=== PATIENT | female | born 1965 | race Caucasian/White ===

== ENCOUNTER 2017-03-28 09:49 | Emergency (ER) | payer MEDICAID, OTHER ==
[~2017-03-28] VITALS: Ht 170.2 cm; Wt 89.0 kg
[2017-03-28] MEDS ORDERED: ISOS30TA53 PO (10:01)
[2017-03-28] MEDS ORDERED: FAMO20TA8 PO (10:01)
[2017-03-28] MEDS ORDERED: ATOR80TA76 PO (10:01)
[2017-03-28] MEDS ORDERED: LISI-618 PO (10:01)
[2017-03-28] MEDS ORDERED: METO25 PO (10:01)
[2017-03-28] MEDS ORDERED: GLIP5TAB11 PO (10:01)
[2017-03-28] MEDS ORDERED: CLOP75TA32 PO (10:01)
[2017-03-28] MEDS ORDERED: AMIT10TA6 PO (10:01)
[2017-03-28] MEDS ORDERED: LEVO50TA4 PO (10:01)
[2017-03-28] MEDS ORDERED: ASPI-556 PO (10:01)
[2017-03-28] MEDS ORDERED: METF10002 PO (10:01)
[2017-03-28 10:02] LABS: GLUCOSE,POINT OF CARE 107 MG/DL (70-110)
[2017-03-28] MEDS ORDERED: PERTUSS(ACELL),DIPH,TET VAC/PF 0.5 ML VIAL IM ONE (10:30)
[2017-03-28] MEDS ORDERED: IBUPROFEN 800 MG TABLET PO ONE (10:45)
[2017-03-28] MEDS ORDERED: AMOX TR/POT CLAV 875 MG/125 MG TABLET PO ONE (10:45)
[2017-03-28 11:22] VITALS: BP 114/56
== END 2017-03-28 11:24 | disposition home or self-care (01) ==
LOC: EMS 09:52
DX: L02.612 Cutaneous abscess of left foot (principal); L03.116 Cellulitis of left lower limb; E11.9 Type 2 diabetes mellitus without complications; E78.00 Pure hypercholesterolemia, unspecified; I10 Essential (primary) hypertension; Z98.84 Bariatric surgery status
CPT/HCPCS: 82962; 90471; 90715; 99284